=== PATIENT | female | born 1935 | race Caucasian/White ===

== ENCOUNTER 2022-07-15 10:24 | Emergency (ER) | payer OTHER ==
[~2022-07-15] VITALS: Ht 160 cm; Wt 63.6 kg
[2022-07-15] MEDS ORDERED: MORPHINE SULFATE 4 MG/ML SYR/VIAL IV ONE (10:45)
[2022-07-15] MEDS ORDERED: SODIUM CHLORIDE 0.9% 1,000 ML IVB ONE (10:45)
[2022-07-15] MEDS ORDERED: ONDANSETRON HCL 4 MG/2 ML VIAL IV ONE (10:45)
[2022-07-15] MEDS ORDERED: KETOROLAC TROMETH 30 MG/ML 1ML VIAL IV ONE (10:45)
[2022-07-15 11:01] LABS: Hematocrit 41.1 % (36.0-46.0); Hemoglobin 13.3 g/dL (12.2-16.2); Mean Corpuscular Hemoglobin 28.1 pg (28.0-32.0); Mean Corpuscular Hgb Conc. 32.3 g/dL (32.0-36.0); Mean Corpuscular Volume 87.1 fL (80.0-100.0); Red Blood Cells 4.72 10^6/uL (4.0-5.20); Red Cell Distribution Width 14.7 % (11.8-14.3)
[2022-07-15 11:13] LABS: Albumin 3.5 g/dL (3.4-5.0); BUN/Creatinine Ratio 19.8 (10.0-20.0); Calcium 9.1 mg/dL (8.5-10.1); Potassium 3.9 mmol/L (3.5-5.1)
[2022-07-15 11:16] LABS: Bilirubin, Total 0.8 mg/dL (0.2-1.0); Total Protein 6.6 g/dL (6.4-8.2)
[2022-07-15 11:21] LABS: Basophils % (manual) 0 (0.0-2.0); Blast Cells 0; Eosinophils % (manual) 0 (0-7); Metamyelocytes % 0; Myelocytes % 0; Promyelocytes % 0; Reactive Lymphocytes 0
[2022-07-15 11:28] LABS: INR 0.99 (0.9-1.15); Partial Thromboplastin Time < 20.0 sec (24.6-33.4)
[2022-07-15 12:07] LABS: Band Neutrophils % (manual) 17; Lymphocytes % (manual) 1 (10.0-50.0); Monocytes % (manual) 1 (0-12)
[2022-07-15 12:47] LABS: Urine Bacteria FEW /hpf (None Seen); Urine Blood TRACE /uL (Negative); Urine Mucus FEW (None Seen); Urine Specific Gravity 1.021 (1.001-1.035); Urine WBC 21 /hpf (0 - 5)
[2022-07-15] MEDS ORDERED: PANT40TA2 PO (14:46)
[2022-07-15 16:19] VITALS: BP 140/57
[2022-07-16] MEDS ORDERED: CEPH-510 PO (17:11)
== END 2022-07-15 16:21 | disposition home or self-care (01) ==
LOC: EDBD 10:24 → ER 10:24
DX: K82.8 Other specified diseases of gallbladder (principal); K44.9 Diaphragmatic hernia without obstruction or gangrene; K21.9 Gastro-esophageal reflux disease without esophagitis; R10.11 Right upper quadrant pain; R07.89 Other chest pain; I10 Essential (primary) hypertension; E11.9 Type 2 diabetes mellitus without complications; E78.5 Hyperlipidemia, unspecified
CPT/HCPCS: 36415; 71045; 74176; 76705; 80053; 81001; 83690; 84484; 85007; 85027; 85610; 85730; 93005; 96361; 96374; 96375; 99285; J1885; J2405; J7030

== ENCOUNTER 2022-07-16 12:50 | Emergency (ER) | payer OTHER ==
[~2022-07-16] VITALS: Ht 160 cm; Wt 60.0 kg
[~2022-07-16 12:50] MED LIST: PANT40TA2 PO
[2022-07-16 14:57] VITALS: BP 180/77
[2022-07-16] MEDS ORDERED: HYDROcodone-ACET 10/325MG TAB PO ONE (15:15)
[2022-07-16] MEDS ORDERED: CEPH-510 PO (17:11)
== END 2022-07-16 17:34 | disposition home or self-care (01) ==
LOC: ER 12:50
DX: S61.214A Laceration without foreign body of right ring finger without damage to nail, initial encounter (principal); S61.213A Laceration without foreign body of left middle finger without damage to nail, initial encounter; E11.9 Type 2 diabetes mellitus without complications; E78.5 Hyperlipidemia, unspecified; I10 Essential (primary) hypertension; W22.8XXA Striking against or struck by other objects, initial encounter; Y93.89 Activity, other specified; Y92.89 Other specified places as the place of occurrence of the external cause; Y99.8 Other external cause status
CPT/HCPCS: 12002; 73130